=== PATIENT | male | born 1945 | race Caucasian/White ===

== ENCOUNTER → 2016-04-02 | Outpatient (CLI) | payer MEDICARE ==
--- NOTE | 2016-04-02 13:50 | KCIC ---
PROCEDURE PA and lateral chest radiograph. HISTORY Rhonchi. Smoking history. R09.89. COMPARISON CT chest August 14, 2008. FINDINGS Cardiac silhouette appears within normal limits for size. No focal infiltrate, pleural effusion, or pneumothorax is seen. Multiple thoracic levels demonstrate marginal disc osteophytes. IMPRESSION No acute cardiopulmonary process. Electronically signed by: Lars Ceballos MD (Apr 02, 2016 13:48:38)
== END | disposition home or self-care (01) ==
LOC: KCIC 13:19
PROVIDERS: ATTEND Pediatrics
DX: M25.78 Osteophyte, vertebrae (principal)
CPT/HCPCS: 71020

== ENCOUNTER 2018-07-14 17:25 | Emergency (ER) | payer MEDICARE, OTHER ==
[~2018-07-14] VITALS: Ht 180.3 cm; Wt 106.1 kg
[2018-07-14 19:31] VITALS: BP 189/99
[2018-07-14] MEDS ORDERED: cefTRIAXone IM 1 GM VIAL IM ONE (20:00)
[2018-07-14] MEDS ORDERED: LIDOCAINE 1% PF 2 ML VIAL. INJ ONE (20:00)
--- NOTE | 2018-07-14 20:33 | PHYS DOC ---
Past Medical History Past Medical History: Hypertension, Other Additional Past Medical Histor: KIDNEY CA Past Surgical History: No Surgical History Alcohol Use: None Drug Use: None Adult General Chief Complaint Chief Complaint: DENTAL PROBLEM HPI HPI Patient is a 72 year old male with a history of hypertension who presents to the ED today complaining of swelling on the right lower gum. Patient states he was diagnosed with dental abscess yesterday, started on clindamycin. He states he woke up this morning and the swelling on the left lower gum was more and was worried he could be having an allergic reaction to the clindamycin. Patient denies any difficulty breathing, throat or tongue swelling, denies any rash. Denies any fever. Review of Systems Review of Systems Constitutional: Denies fever or chills [] Eyes: Denies change in visual acuity, redness, or eye pain [] HENT: Reports left lower gum swelling. Denies nasal congestion or sore throat [] Respiratory: Denies cough or shortness of breath [] Cardiovascular: No additional information not addressed in HPI [] GI: Denies abdominal pain, nausea, vomiting, bloody stools or diarrhea [] : Denies dysuria or hematuria [] Musculoskeletal: Denies back pain or joint pain [] Integument: Denies rash or skin lesions [] Neurologic: Denies headache, focal weakness or sensory changes [] All other systems were reviewed and found to be within normal limits, except as documented in this note. Current Medications Current Medications Current Medications Medications (Trade) Dose Ordered Sig/Trevor Start Time Stop Time Status Last Admin Dose Admin Ceftriaxone Sodium (Rocephin Im) 1 gm 1X ONCE 07/14/18 20:00 07/14/18 20:04 DC 07/14/18 20:18 1 GM Lidocaine HCl (Xylocaine-Mpf 1% 2ml Vial) 2 ml 1X ONCE 07/14/18 20:00 07/14/18 20:04 DC 07/14/18 20:18 2 ML Allergies Allergies Allergies Coded Allergies Type Severity Reaction Last Updated Verified No Known Drug Allergies 07/14/18 No Physical Exam Physical Exam Constitutional: Well developed, well nourished, no acute distress, non-toxic appearance. [] HENT: Normocephalic, atraumatic, bilateral external ears normal, oropharynx moist, no oral exudates, nose normal. []Airway is open. There is mild swelling on the left lower gum consistent with a dental abscess. Similar swelling noted on the exterior aspect of the left lower cheek. No gum erythema. Decayed teeth noted on the left lower gum molars and premolars. Eyes: PERRLA, EOMI, conjunctiva normal, no discharge. [] Neck: Normal range of motion, no tenderness, supple, no stridor. [] Cardiovascular:Heart rate regular rhythm, no murmur [] Lungs & Thorax: Bilateral breath sounds clear to auscultation [] Abdomen: Bowel sounds normal, soft, no tenderness, no masses, no pulsatile masses. [] Skin: Warm, dry, no erythema, no rash. [] Back: No tenderness, no CVA tenderness. [] Extremities: No tenderness, no cyanosis, no clubbing, ROM intact, no edema. [] Neurologic: Alert and oriented X 3, normal motor function, normal sensory function, no focal deficits noted. [] Psychologic: Affect normal, judgement normal, mood normal. [] Current Patient Data Vital Signs Vital Signs Date Time Temp Pulse Resp B/P (MAP) Pulse Ox O2 Delivery O2 Flow Rate FiO2 07/14/18 19:31 99.0 72 20 189/99 (129) 97 Room Air 99.0 EKG EKG [] Radiology/Procedures Radiology/Procedures [] Course & Med Decision Making Course & Med Decision Making Pertinent Labs and Imaging studies reviewed. (See chart for details) This is a 72-year-old male patient presented to the ED today with a dental abscess which he was diagnosed yesterday, was started on clindamycin and was worried the swelling has grown bigger, patient is concerned this could be an allergic reaction to clindamycin. The swelling is isolated to the left lower gum consistent with a dental abscess. Reassured patient. Encouraged him to continue taking the clindamycin. Given Rocephin IM in the ED. Follow-up with his own dentist in the next 1-2 weeks. Dragon Disclaimer Dragon Disclaimer This electronic medical record was generated, in whole or in part, using a voice recognition dictation system. Departure Departure Impression: Primary Impression: Dental abscess Disposition: HOME, SELF-CARE Condition: STABLE Referrals: JENNIFER PANTOJA MD (PCP) Follow-up with the primary care doctor and dentist in 1-2 weeks Patient Instructions: Dental Abscess Additional Instructions: You were evaluated in the medicine for dental abscess, continue taking clindamycin. Follow-up with your dentist as well as primary care doctor in the next 1-2 weeks. Come back to the ED at any point symptoms worsen. KEVIN POSADA [employer] July 14, 2018 20:33
== END 2018-07-14 20:46 | disposition home or self-care (01) ==
LOC: ER 17:25
DX: K04.7 Periapical abscess without sinus (principal); I10 Essential (primary) hypertension
CPT/HCPCS: 96372; 99284; J0696